=== PATIENT | male | born 1950 | race Caucasian/White ===

== ENCOUNTER 2018-05-13 17:19 | Emergency (ER) | payer MEDICARE ==
[~2018-05-13] VITALS: Ht 190.5 cm; Wt 102.1 kg
[~2018-05-13 17:19] MED LIST: DAILY MULTIPLE1 EACH PO; LEVOTHYROXINE75 MCG PO; LISINOPRIL2.5 MG PO; LOSARTAN POTASS25 MG PO; METFORMIN HCL500 M1 PO; VITAMIN D-32000 UNIT PO
== END 2018-05-13 18:33 | disposition home or self-care (01) ==
LOC: ED 17:19
DX: R31.9 Hematuria, unspecified (principal); E11.9 Type 2 diabetes mellitus without complications; Z91.038 Other insect allergy status; Z79.84 Long term (current) use of oral hypoglycemic drugs
CPT/HCPCS: 36415; 80048; 81001; 85025; 99283

== ENCOUNTER 2018-07-07 05:30 | Observation (INO) | payer MEDICARE ==
[~2018-07-07] VITALS: Ht 190.5 cm; Wt 93.0 kg
--- OUTSIDE RECORDS SUMMARY | ~2018-07-07 | XMS | Clinical Summary ---
Demographics + + + | Address | [address] | | | [place] [address] | + + + | Home Phone | | + + + | Preferred Language | Unknown | + + + | Marital Status | | + + + | Catholic Affiliation | Unknown | + + + | Race | Unknown | + + + | Ethnic Group | Unknown | + + + Author + + + | Author | [facility] | + + + | Organization | [facility] | + + + | Address | Unknown | + + + | Phone | Unavailable | + + + Support + + +---------+ + | Name | Relationship | Address | Phone | + + +---------+ + | Afshan Olmedo | ECON | Unknown | | + + +---------+ + | Detailed,Message | ECON | Unknown | | + + +---------+ + Care Team Providers + +------+ + | Care Entrepreneurship Program Director Name | Role | Phone | + +------+ + | Terrence Zaragoza DO | PP | | + +------+ + Allergies + + + + + + | Active Allergy | Reactions | Severity | Noted | Comments | | | | | Date | | + + + + + + | Bee Venom | Shortness of Breath | High | 05/25/19 | | | | | | 16 | | + + + + + + Current Medications + + +--------+---------+------+------+-------+ | Prescription | Sig. | Disp. | Refills | Star | End | Statu | | | | | | t | Date | s | | | | | | Date | | | + + +--------+---------+------+------+-------+ | Multiple | Take 1 tablet by | | | | | Activ | | Vitamins-Minerals | mouth daily. | | | | | e | | (ONE-A-DAY MENS 50+ | | | | | | | | ADVANTAGE PO) | | | | | | | + + +--------+---------+------+------+-------+ | Cholecalciferol | Take 2,000 Units by | | | | | Activ | | (VITAMIN D) 2000 | mouth daily. | | | | | e | | UNITS tablet | | | | | | | + + +--------+---------+------+------+-------+ | levothyroxine | Take 75 mcg by mouth | | | | | Activ | | (SYNTHROID) 75 MCG | every morning | | | | | e | | tablet | before breakfast. | | | | | | + + +--------+---------+------+------+-------+ | metFORMIN | Take 2,500 mg by | | | | | Activ | | (GLUMETZA) 500 MG | mouth daily with | | | | | e | | (MOD) 24 hr tablet | breakfast. Take 5 | | | | | | | | tablets by mouth | | | | | | | | once daily | | | | | | + + +--------+---------+------+------+-------+ | candesartan | Take 1 tablet by | 90 | 1 | 03/3 | | Activ | | (ATACAND) 8 MG | mouth daily. | tablet | | 04/27 | | e | | tabletIndications: | | | | 16 | | | | Essential | | | | | | | | hypertension | | | | | | | + + +--------+---------+------+------+-------+ | losartan (COZAAR) | TAKE 1 TABLET by | 90 | 1 | 04/1 | | Activ | | 25 MG tablet | mouth daily | tablet | | 11/25 | | e | | | | | | 17 | | | + + +--------+---------+------+------+-------+ Active Problems + + + | Problem | Noted Date | + + + | Coronary artery calcification seen on CT scan | 05/26/2015 | + + + + + | Last Assessment & Plan: No chest pain, SOB improved, no | | palpitationsCT coronary calcium scoring done because of dyspnea | | on exertion and high heart rate showed 50th percentile scoring- | | 112With moderate calcifications in LAD, CircEcho- normal LV | | funtionStress MPI no ischemiaDiscussed with patient regarding | | significance of calcium scoring in his age group- may not | | necessarily mean CAD- his symptoms of dyspnea- wheezing improved | | from fall to winter suggestive of possible allergic bronchitis, | | asthma- how ever patient have risk factors for CAD- HTN, DM, 64 | | yr old male- He is currently not on lisinopril- stopped on his | | own because of cough- his BP at home 130-150 as per patientJacques | | add Atacand 8mg daily- he will continue to monitor BP at | | homeContinue ASALDL- 54- not on statinDiscussed about CAD- | | importance of risk factor modification- diet, exercise, lifestyle | | changes, weight loss- clinical signs, importance of symptoms, | | CAD presentations, warning signs, management options including | | role of stress test, coronary angiogram, role of medications, | | stents, CABG in management of CADWill do PFTs- pulmonary | | evaluation for dyspnea- he reports wheezing post exercise and | | cough-? Exercise induced asthma? May benefit from methacholine | | challenge testF/u after test. | + + + + + | Dyspnea on exertion | 05/26/2015 | + + + + + | Last Assessment & Plan: His symptoms improved since initial | | presentation of dyspnea-Will rule out CADWisupa do PFTs- | | DLCOPulmonary evaluation for dyspnea- he reports wheezing post | | exercise and cough-? Exercise induced asthma? May benefit from | | methacholine challenge test | + + + + + | Palpitations | 05/26/2015 | + + + + + | Last Assessment & Plan: Reported increasing heart rate with | | significant exertion now resolved as breathing improvedEvent | | monitoring- no significant arrhythmias.No palpitations since last | | visit. | + + Social History + +-------+ +--------+------+ | Tobacco Use | Types | Packs/Day | Years | Date | | | | | Used | | + +-------+ +--------+------+ | Former Smoker | | | | | + +-------+ +--------+------+ + +---+---+---+ | Smokeless Tobacco: | | | | | Never Used | | | | + +---+---+---+ + + +---------+ + | Alcohol Use | Drinks/We | oz/Week | Comments | | | ek | | | + + +---------+ + | No | 0 | 0.0 | | | | Standard | | | | | drinks or | | | | | | | | | | equivalen | | | | | t | | | + + +---------+ + + + + | Sex Assigned at | Date Recorded | | | | + + + | Not on file | | + + + Last Filed Vital Signs + + + + | Vital Sign | Reading | Time Taken | + + + + | Blood Pressure | 142/80 | 07/07/2015 10:26 AM PDT | + + + + | Pulse | 77 | 07/07/2015 10:26 AM PDT | + + + + | Temperature | - | - | + + + + | Respiratory Rate | 18 | 07/07/2015 10:26 AM PDT | + + + + | Oxygen Saturation | 98% | 07/07/2015 10:26 AM PDT | + + + + | Inhaled Oxygen | - | - | | Concentration | | | + + + + | Weight | 102.4 kg (225 lb | 07/07/2015 10:26 AM PDT | | | 12.8 oz) | | + + + + | Height | 190.5 cm (6' 3") | 07/07/2015 10:26 AM PDT | + + + + | Body Mass Index | 28.22 | 07/07/2015 10:26 AM PDT | + + + + Plan of Treatment + + + + + | Health Maintenance | Due Date | Last Done | Comments | + + + + + | Vaccine: | | | | | Dtap/Tdap/Td (1 - | 8 | | | | Tdap) | | | | + + + + + | Colon Cancer | | | | | Screening | 9 | | | | (Colonoscopy) | | | | + + + + + | Vaccine: Zoster (1 | | | | | of 2) | 9 | | | + + + + + | Vaccine: | | | | | Pneumococcal 65+ | 4 | | | | Low/Medium Risk (1 | | | | | of 2 - PCV13) | | | | + + + + + | Statin Therapy | | | | | (optimal intensity) | 7 | | | + + + + + | Vaccine: Influenza | | | | | (#1) | 8 | | | + + + + + Results Not on filefrom Last 3 Months Insurance + +--------+ +------+-------+ + | Payer | Benefi | Subscriber | Type | Phone | Address | | | t Plan | ID | | | | | | / | | | | | | | Group | | | | | + +--------+ +------+-------+ + | PREMERA | PREMER | [id number] | | | [address] [address] | | | A BLUE | 8 | | | [place], [place] | | | CARD | | | | [phone] | + +--------+ +------+-------+ + | MEDICARE | MEDICA | [id number] | | | [address] | | | RE | | | | [place] [phone] | | | IP-OP | | | | | + +--------+ +------+-------+ + | REGENCE | REGENC | [id number] | | | | | | E-OREG | 8 | | | | | | ON | | | | | + +--------+ +------+-------+ + + +--------+ +--------+ + + | Guarantor Name | Accoun | Relation to | Date | Phone | Billing Address | | | t Type | Patient | of | | | | | | | | | | + +--------+ +--------+ + + | HÉCTOR OLMEDO JR. | Person | Self [birth year] | Home: | [address] | | | al/Fam | | 1951 | [phone] | [place] [address] | | | edi | | | [phone] | | + +--------+ +--------+ + +
--- OUTSIDE RECORDS SUMMARY | ~2018-07-07 | XMS | Encounter Summary ---
Demographics + + + | Address | [address] | | | [place] [address] | + + + | Home Phone | | + + + | Preferred Language | Unknown | + + + | Marital Status | | + + + | Spiritism Affiliation | 1073 | + + + | Race | Unknown | + + + | Ethnic Group | Unknown | + + + Author + + + | Author | [facility] | | | [facility] | + + + | Organization | [facility] | | | and [place] | + + + | Address | Unknown | + + + | Phone | Unavailable | + + + Support + + +---------+ + | Name | Relationship | Address | Phone | + + +---------+ + | CHERRY OLMEDO | ECON | Unknown | | + + +---------+ + Care Team Providers + +------+ + | Care Accuracy Expert Name | Role | Phone | + +------+ + | Maycol Nino | PCP | | | MD | | | + +------+ + Encounter Details +--------+ + + + + | Date | Type | Department | Care Team | Description | +--------+ + + + + | 06/25/ | [facility] | [facility] [place] | Michael Do MD | S/P cervical spinal | | 2019 | Encounter | MED CTR XRAY [address] | [address] [place] | fusion; Cervical | | | | [place] | [address] [place], [place] | spondylosis with | | | | [place] [address] | [address] | radiculopathy | | | | [phone] | | | +--------+ + + + + Social History + + + +--------+ + | Tobacco Use | Types | Packs/Day | Years | Date | | | | | Used | | + + + +--------+ + | Former Smoker | Cigarettes | | 22 | Quit: 04/08/1991 | + + + +--------+ + + +---+---+---+ | Smokeless Tobacco: | | | | | Never Used | | | | + +---+---+---+ + + +---------+ + | Alcohol Use | Drinks/We | oz/Week | Comments | | | ek | | | + + +---------+ + | No | | | | + + +---------+ + + + + | Sex Assigned at | Date Recorded | | | | + + + | Not on file | | + + + as of this encounter Medications at Time of Discharge + + +-------+---------+ + + | Medication | Sig. | Disp. | Refills | Start | End Date | | | | | | Date | | + + +-------+---------+ + + | cholecalciferol | Take 2,000 Units by | | | | | | (VITAMIN D-3) 2000 | mouth Daily. | | | | | | units TABS | | | | | | + + +-------+---------+ + + | EPINEPHrine | Inject 0.3 mg into | | | | | | auto-injector | the muscle as needed | | | | | | (EPIPEN 2-DANIEL) 0.3 | for Anaphylaxis. | | | | | | mg/0.3 mL injection | | | | | | + + +-------+---------+ + + | | Take 500 mg by mouth | | | | | | Glucosamine-Chondroi | 2 times daily. | | | | | | tin (GLUCOSAMINE | | | | | | | CHONDR COMPLEX PO) | | | | | | + + +-------+---------+ + + | levothyroxine | Take 75 mcg by mouth | | | | | | (SYNTHROID) 75 MCG | Daily. | | | | | | tablet | | | | | | + + +-------+---------+ + + | losartan (COZAAR) | Take 1 tablet by | | | 07/25/19 | | | 25 mg tablet | mouth Daily. | | | 17 | | + + +-------+---------+ + + | metFORMIN | Take 2,500 mg by | | | | | | (GLUMETZA) 500 MG 24 | mouth Daily. | | | | | | hr tablet | | | | | | + + +-------+---------+ + + | Multiple | Take 1 tablet by | | | | | | Vitamins-Minerals | mouth Daily. | | | | | | (CENTRUM SILVER | | | | | | | ULTRA MENS) TABS | | | | | | + + +-------+---------+ + + | Teaberry-3 Fatty | Take 1 tablet by | | | | | | Acids (FISH OIL PO) | mouth Daily. | | | | | + + +-------+---------+ + + as of this encounter Plan of Treatment Not on fileas of this encounter Procedures + +--------+ + + + | Procedure Name | Priori | Date/Time | Associated Diagnosis | Comments | | | ty | | | | + +--------+ + + + | XR CERVICAL SPINE 2 | Routin | 06/25/2018 | S/P cervical | Results for this | | OR 3 VIEWS | e | 1114 PDT | spinal fusion | procedure are in the | | | | | Cervical spondylosis | results section. | | | | | with radiculopathy | | + +--------+ + + + in this encounter Results XR Cervical Spine 2 or 3 Views (06/25/2018 1114) + + + | Narrative | Performed At | + + + | TWO VIEWS CERVICAL SPINE 06/25/2018 11:14 AM CLINICAL HISTORY: | [facility] | | Postop fusion COMPARISON: Radiographs January 2018 and more remote | | | imaging FINDINGS: Anterior plate and screw and interbody fusion | | | hardware again extends from C3 through C6 and appears stable and | | | intact. Vertebral height and alignment are maintained without | | | evident fracture or subluxation. Anterior disc space narrowing and | | | spondylosis persist at C6-7. Imaged skull base, soft tissue | | | structures and lung apices are unremarkable. IMPRESSION - 1. | | | STABLE CHANGES OF ACDF EXTENDING FROM C3 THROUGH C6. Dictated and | | | Signed by: Deni Grullon MD Electronically signed: 06/25/2018 12:17 | | | PM | | + + + + + | Procedure Note | + + | Javi, Rad Results In - 06/25/2018 1220 PDT TWO VIEWS CERVICAL SPINE 06/25/2018 11:14 AM | | | | CLINICAL HISTORY: Postop fusion | | | | COMPARISON: Radiographs January 2018 and more remote imaging | | | | FINDINGS: Anterior plate and screw and interbody fusion hardware again extends | | from C3 through C6 and appears stable and intact. Vertebral height and | | alignment are maintained without evident fracture or subluxation. Anterior disc | | space narrowing and spondylosis persist at C6-7. Imaged skull base, soft tissue | | structures and lung apices are unremarkable. | | | | IMPRESSION - | | 1. STABLE CHANGES OF ACDF EXTENDING FROM C3 THROUGH C6. | | | | Dictated and Signed by: Deni Grullon MD | | Electronically signed: 06/25/2018 12:17 PM | + + + +---------+ + + | Performing | Address | City/State/Zipcode | Phone Number | | Organization | | | | + +---------+ + + | [facility] | | | | + +---------+ + + in this encounter Visit Diagnoses + + | Diagnosis | + + | S/P cervical spinal fusion | + + | Arthrodesis status | + + | Cervical spondylosis with radiculopathy | + + | Cervical spondylosis with myelopathy | + +"
--- OUTSIDE RECORDS SUMMARY | ~2018-07-07 | XMS | Clinical Summary ---
Demographics + + + | Address | [address] | | | [place] [address] | + + + | Home Phone | | + + + | Preferred Language | Unknown | + + + | Marital Status | | + + + | Confucianist Affiliation | [id number] | + + + | Race | Unknown | + + + | Ethnic Group | Unknown | + + + Author + + + | Author | [facility] | | | and [place] | + + + | Organization | [facility] | | | and [place] | [...] Team Providers + +------+ + | Care Plant And Equipment Worker Name | Role | Phone | + +------+ + | Maycol Nino | PP | | | MD | | | + +------+ + Allergies + + + + + + | Active Allergy | Reactions | Severity | Noted | Comments | | | | | Date | | + + + + + + | Bee Venom | Shortness Of Breath, | High | 05/25/19 | Asthma | | | Other (See | | 16 | | | | Comments) | | | | + + + + + + Current Medications + + +-------+---------+------+------+-------+ | Prescription | Sig. | Disp. | Refills | Star | End | Statu | | | | | | t | Date | s | | | | | | Date | | | + + +-------+---------+------+------+-------+ | losartan (COZAAR) | Take 1 tablet by | | | 04/1 | | Activ | | 25 mg tablet | mouth Daily. | | | 8/20 | | e | | | | | | 17 | | | + + +-------+---------+------+------+-------+ | metFORMIN | Take 2,500 mg by | | | | | Activ | | (GLUMETZA) 500 MG 24 | mouth Daily. | | | | | e | | hr tablet | | | | | | | + + +-------+---------+------+------+-------+ | levothyroxine | Take 75 mcg by mouth | | | | | Activ | | (SYNTHROID) 75 MCG | Daily. | | | | | e | | tablet | | | | | | | + + +-------+---------+------+------+-------+ | cholecalciferol | Take 2,000 Units by | | | | | Activ | | (VITAMIN D-3) 2000 | mouth Daily. | | | | | e | | units TABS | | | | | | | + + +-------+---------+------+------+-------+ | Multiple | Take 1 tablet by | | | | | Activ | | Vitamins-Minerals | mouth Daily. | | | | | e | | (CENTRUM SILVER | | | | | | | | ULTRA MENS) TABS | | | | | | | + + +-------+---------+------+------+-------+ | EPINEPHrine | Inject 0.3 mg into | | | | | Activ | | auto-injector | the muscle as needed | | | | | e | | (EPIPEN 2-DANIEL) 0.3 | for Anaphylaxis. | | | | | | | mg/0.3 mL injection | | | | | | | + + +-------+---------+------+------+-------+ | [place]-3 Fatty | Take 1 tablet by | | | | | Activ | | Acids (FISH OIL PO) | mouth Daily. | | | | | e | + + +-------+---------+------+------+-------+ | | Take 500 mg by mouth | | | | | Activ | | Glucosamine-Chondroi | 2 times daily. | | | | | e | | tin (GLUCOSAMINE | | | | | | | | CHONDR COMPLEX PO) | | | | | | | + + +-------+---------+------+------+-------+ Active Problems + + + | Problem | Noted Date | + + + | Diabetes mellitus (HCC) | 11/26/2017 | + + + | Esophageal dysphagia | 09/16/2017 | + + + | Coronary artery calcification seen on CT scan | 05/26/2015 | + + + + + | Overview: Last Assessment & Plan: No chest pain, SOB | | improved, no palpitationsCT coronary calcium scoring done because | | of dyspnea on exertion and high heart rate showed 50th | | percentile scoring- 112With moderate calcifications in LAD, | | CircEcho- normal LV funtionStress MPI no ischemiaDiscussed with | | patient regarding significance of calcium scoring in his age | | group- may not necessarily mean CAD- his symptoms of dyspnea- | | wheezing improved from fall to winter suggestive of possible | | allergic bronchitis, asthma- how ever patient have risk factors | | for CAD- HTN, DM, 64 yr old male- He is currently not on | | lisinopril- stopped on his own because of cough- his BP at home | | 130-150 as per Prashanth add Atacand 8mg daily- he will | | continue to monitor BP at homeContinue ASALDL- 54- not on | | statinDiscussed about CAD- importance of risk factor | | modification- diet, exercise, lifestyle changes, weight loss- | | clinical signs, importance of symptoms, CAD presentations, | | warning signs, management options including role of stress test, | | coronary angiogram, role of medications, stents, CABG in | | management of CADWill do PFTs- pulmonary evaluation for dyspnea- | | he reports wheezing post exercise and cough-? Exercise induced | | asthma? May benefit from methacholine challenge testF/u after | | test. | + + + + + | Dyspnea on exertion | 05/26/2015 | + + + + + | Overview: Last Assessment & Plan: His symptoms improved since | | initial presentation of dyspnea-Will rule out CADWill do PFTs- | | DLCOPulmonary evaluation for dyspnea- he reports wheezing post | | exercise and cough-? Exercise induced asthma? May benefit from | | methacholine challenge test | + + + + + | Palpitations | 05/26/2015 | + + + + + | Overview: Last Assessment & Plan: Reported increasing heart | | rate with significant exertion now resolved as breathing | | improvedEvent monitoring- no significant arrhythmias.No | | palpitations since last visit. | + + + + + | History of malignant lymphoma | 04/08/1994 | + + + Encounters +--------+ + + + + | Date | Type | Specialty | Care Team | Description | +--------+ + + + + | 06/25/ | Hospital | | Michael Do MD | S/P cervical spinal | | 2019 | Encounter | | | fusion; Cervical | | | | | | spondylosis with | | | | | | radiculopathy | +--------+ + + + + from Last 3 Months Immunizations + + + + | Name | Dates Previously Given | Next Due | + + + + | INFLUENZA, | 12/06/2017 | | | UNSPECIFIED | | | | FORMULATION | | | + + + + Family History + + +------+ + | Medical History | Relation | Name | Comments | + + +------+ + | Lung cancer | Father | | Melanoma | + + +------+ + | Diabetes | Mother | | | + + +------+ + | Heart disease | Mother | | ASHD | + + +------+ + + +------+ + + | Relation | Name | Status | Comments | + +------+ + + | Father | | | | | | | (Age | | | | | 67) | | + +------+ + + | Mother | | | | | | | (Age | | | | | 79) | | + +------+ + + Social History + + + [...] + + + | Blood Pressure | 139/76 | 01/22/20181346 PDT | + + + + | Pulse | 69 | 01/22/20181346 PDT | + + + + | Temperature | 36.6 C (97.9 F) | 11/05/20171099 PDT | + + + + | Respiratory Rate | 16 | 11/05/20171099 PDT | + + + + | Oxygen Saturation | 97% | 11/05/20171099 PDT | + + + + | Inhaled Oxygen | - | - | | Concentration | | | + + + + | Weight | 98.4 kg (216 lb 14.9 | 01/22/20181346 PDT | | | oz) | | + + + + | Height | 190.5 cm (6' 3") | 01/22/20181346 PDT | + + + + | Body Mass Index | 27.11 | 01/22/20181346 PDT | + + + + Plan of Treatment + + + + + | Health Maintenance | Due Date | Last Done | Comments | + + + + + | Hepatitis C | | | | | Screening | 9 | | | + + + + + | Diabetic Eye Exam | | | | | | 7 | | | + + + + + | Diabetic Foot Exam | | | | | | 7 | | | + + + + + | Vaccine: Zoster (1 | | | | | of 2) | 9 | | | + + + + + | AAA Screening | | | | | | 4 | | | + + + + + | Adult Annual | | | | | Wellness Visit | 5 | | | + + + + + | Statin Therapy | | | | | (optimal intensity) | 5 | | | + + + + + | Vaccine: | | 03/21/2015 | | | Pneumococcal 65+ | 6 | | | | Low/Medium Risk (2 | | | | | of 2 - PCV13) | | | | + + + + + | Hemoglobin A1c Q6 | | 10/25/2017 | | | Months | 9 | | | + + + + + | Colorectal Cancer | | 03/21/2015 | | | Screening | 5 | | | | (Colonoscopy) | | | | + + + + + | Vaccine: | | 09/19/2016, 08/24/2011, | | | Dtap/Tdap/Td (4 - | 7 | 01/13/2008 | | | Td) | | | | + + + + + | Vaccine: Influenza | Completed | 12/06/2017, 11/22/2017, | | | | | 11/30/2016, Additional history | | | | | exists | | + + + + + Implants + +--------+--------+ +--------+--------+--------+ | Implanted | Type | Area | Manufacture | Device | Expira | Model | | | | | r | | tion | / | | | | | | Identi | Date | Serial | | | | | | fier | | / Lot | + +--------+--------+ +--------+--------+--------+ | Cage Isatu Ptc [id number] - | Generi | N/A: | [employer] - | | 08/27/ | [id number] | | [id number]: Qty: 1 | c | Neck | MEDT | | 2025 | 4 / | | on 11/04/2017 by Michael Do | | | | | | /[id number] | | MD Eitan | | | | | | | + +--------+--------+ +--------+--------+--------+ | Cage Isatu Ptc [id number] - | Generi | N/A: | [employer] - | | 10/09/ | [id number] | | [id number]: Qty: 2 | c | Neck | MEDT | | 2025 | 4 / | | on 11/04/2017 by Michael Do | | | | | | /[id number] | | MD Eitan | | | | | | | + +--------+--------+ +--------+--------+--------+ | Imp Spn Plt Ti Zevo 59mm 3lvl | Generi | N/A: | [employer] - | | | [id number] | | - [id number]: Qty: | c | Neck | MEDT | | | 9 / / | | 1 on 11/04/2017 by Michael Do | | | | | | | | MD Eitan | | | | | | | + +--------+--------+ +--------+--------+--------+ | Emanueldivine Bill Pls 1cc Aseptic | Graft | N/A: | [employer] - | | 05/31/ | [id number] | | - [id number]: Qty: | | Spine | MEDT | | 2020 | | | 1 on 11/04/2017 by Ernestina, | | Lumbar | | | | /[id number] | | Michael Liard MD | | | | | | 1-086 | | | | | | | | / | + +--------+--------+ +--------+--------+--------+ | Screw D-Thrd Slf-Drl 3.5x17mm | Screw | N/A: | [employer] - | | | [id number] | | - [id number]: Qty: | | Neck | MEDT | | | 7 / / | | 6 on 11/04/2017 by Michael Do | | | | | | | Merritt Laird MD | | | | | | | + +--------+--------+ +--------+--------+--------+ | Screw D-Thrd Slf-Drl 4.0x17mm | Screw | N/A: | [employer] - | | | [id number] | | - [id number]: Qty: | | Neck | MEDT | | | 7 / / | | 2 on 11/04/2017 by Michael Do | | | | | | | | MD Eitan | | | | | | | + +--------+--------+ +--------+--------+--------+ Procedures + +--------+ + + + | [...] | | + +--------+ + + + from Last 3 Months Results XR Cervical Spine 2 or 3 [...] | | | + +---------+ + + from Last 3 Months Insurance + +--------+ +--------+ +---------+ | Payer | Benefi | Subscriber | Type | Phone | Address | | | t Plan | ID | | | | | | / | | | | | | | Group | | | | | + +--------+ +--------+ +---------+ | BCBS | BCBS | [id number] | PPO | | | | | OOS | 8 | | | | | | PPO | | | | | + +--------+ +--------+ +---------+ | MEDICARE | MEDICA | [id number] | Medica | [phone] | | | | RE | | re | [phone] | | | | PART A | | | | | | | AND B | | | | | + +--------+ +--------+ +---------+ | AARP | AARP | [id number] | Indemn | [phone] | | | MDCR | | ity | [phone] | | | | SUPPL | | | | | + +--------+ +--------+ +---------+ + +--------+ +--------+ + + | Guarantor Name | Accoun | Relation to | Date | Phone | Billing Address | | | t Type | Patient | of | | | | | | | | | | + +--------+ +--------+ + + | HÉCTOR OLMEDO JR | Person | Self | [birth year] | Home: | [address] | | | al/Fam | | 1951 | [phone] | [place] [address] | | | edi | | [phone] | | + +--------+ +--------+ + +
[~2018-07-07 05:30] MED LIST changes: +FINASTERIDE5 MG PO; +FISH OIL 1,0001 EAC2 NG; +GLUCOSAMINE &1 EAC1 PO; +ONE-A-DAY ESSE1 EACH PO; +VITAMIN D32000 UNI1 PO
--- NOTE | 2018-07-07 09:10 | NUR ---
[facility] PAC[facility] SLEEPY WITH NO C/O'S. CBI RUNNING WITH URINE LITE PINK IN COLOR. 0852 BLOOD SUGAR 116. 0855 OXYGEN REMOVED. SATS 95% ON RA. NO C/O'S.
--- NOTE | 2018-07-07 09:40 | NUR ---
PT TO ROOM 123 VIA STRETCHER ACCOMPANIED BY RAPHAEL HEARD AT 0930. SCOOTED SELF FROM STRETCHER TO BED. DENIED PAIN. AWAKE, ALERT. RECIEVED BEDSIDE REPORT FROM RAPHAEL HEARD. CBI GOING, SLOW RATE, URINE IN CATHETER TUBING CLEAR.
--- NOTE | 2018-07-07 10:20 | NUR ---
PT IN BED, AWAKE, ALERT. NO C/O FEELING OF BLADDER SPASMS, DENIES PAIN. CBI INFUSING SLOWLY, URINE IN TUBING CLEAR.
[2018-07-07] MEDS ORDERED: EPIN0.3P IM (11:04)
--- NOTE | 2018-07-07 11:05 | NUR ---
PT GIVEN SCHEDULED HOME MEDICATIONS. PT DENIES PAIN OR FEELING OF BLADDER SPASMS. CATHETER TUBING HAS URINE FLOWING FREELY INTO IT, URINE CLEAR, LIGHT YELLOW. CBI GOING VERY SLOWLY.
--- NOTE | 2018-07-07 12:08 | NUR ---
CBI OFF, URINE IN CATHETER TUBING CLEAR LIGHT YELLOW. NO CLOTS OR BLOOD NOTED. PT DENIED PAIN. PERSONAL SUPPLIES AND CALL LIGHT IN REACH. PT HAS REGULAR DIET LUNCH AT BEDSIDE. TOLERATED CLEAR LIQUID TRAY WITHOUT ISSUE.
--- NOTE | 2018-07-07 13:35 | NUR ---
PT SITTING UP IN BED, TALKING AND LAUGHING WITH FAMILY. URINE IN CATHETER TUBING HAS LIGHT PINK COLOR. NO CLOTS NOTED, URINE FLOWING INTO TUBING WITHOUT ISSUE. PT DENIED PAIN, DENIED FEELING OF BLADDER SPASMS.
--- NOTE | 2018-07-07 14:17 | NUR ---
PATIENT SITTING UP IN BED, FAMILY IN ROOM. CALL LIGHT IN REACH. NO FURTHER NEEDS AT THIS TIME.
--- NOTE | 2018-07-07 14:39 | NUR ---
PT SITTING UP IN BED, VISITING WITH FAMILY. URINE IN CATHETER TUBING IS LIGHT PINK, NO CLOTS NOTED. 1875 ML LIGHT PINK URINE OUT OF DRAINAGE BAG, WITH APROXIMATELY 100 ML IRRIGANT HAVING INFUSED SINCE LAST EMPTITIED PRIOR TO PT COMING TO FLOOR FROM PACU. CBI REMAINS CLAMPED OFF. PT DENIES PAIN.
[2018-07-07] MEDS ORDERED: MIRALAX17 GM PO (15:57)
--- NOTE | 2018-07-07 16:03 | NUR ---
Medications reconciled using pharmacy records, patient med list and patient interview
--- NOTE | 2018-07-07 17:11 | NUR ---
PT SITTING UP IN BED. NOTED THAT THE URINE IN CATHETER TUBING WAS SERRATO PINK, NO CLOTS NOTED. TURNED CBI ON, CLEARED TUBING OF URINE, AND LEFT CBI ON AT A SLOW DRIP TO KEEP URINE CLEAR. PT DENIED PAIN OR CRAMPING.
--- NOTE | 2018-07-07 17:59 | NUR ---
PT SITTING UP IN BED, ATE 100% OF DINNER, REGULAR DIET. TOLERATED WELL. NO C/O PAIN OR CRAMPING. PT HAS HAD CBI INFUSING SLOWLY, HAD A TOTAL OF 200 ML IRRIGANT IN AND 550 ML MEDIUM PINK URINE OUT, FOR A TOTAL OF 350 ML URINE OUT. URINE IN CATHETER TUBING IS CLEAR LIGHT YELLOW. NO CLOTS NOTED, URINE FLOWING WITHOUT ISSUE.
--- NOTE | 2018-07-07 18:04 | NUR ---
PATIENT IN BED WATCHING TV. FAMILY IN ROOM. FRESH WATER GIVEN. CALL LIGHT IN REACH. NO FURTHER NEEDS AT THIS TIME.
--- NOTE | 2018-07-07 18:05 | NUR ---
PT TO FLOOR FROM PACU THIS AM, HAD TURP. HAS A 3 WAY URINE CATHETER. HAS CBI HOOKED TO THIS. HAD IRRIGANT GOING VERY SLOWLY THIS AM AND WAS ABLE TO WEAN CBI TO OFF WITH CLEAR URINE IN TUBING, BUT PT REPOSITIONED SELF IN BED AND URINE IN TUBING BECAME SERRATO PINK THIS AFTERNOON. CBI TURNED BACK ON TO SLOW RATE OF FLOW, AND URINE IN TUBING IS CLEAR LIGHT YELLOW AGAIN. PT HAS DENIED PAIN. HAS NS INFUSING AT 100 ML/HR.
--- NOTE | 2018-07-07 19:20 | NUR ---
SHIFT REPORT RECEIVED FROM DAYSMTFT RAPHAEL DOVER AT BEDSIDE. CBI INFUSING, 350 MLS VOLUME IN, 500 MLS VOLUME OUT, AND 150 MLS LIGHT TO MEDIUM PINK URINE RECORDED IN I&O'S. CPOX IN PLACE, PT ON RA, RR WNL. PT DENIES FURTHER NEEDS, CALL LIGHT IN REACH.
--- NOTE | 2018-07-07 21:40 | NUR ---
ASSESSMENT COMPLETE. PT A/OX4, DENIES PAIN, BLADDER SPASMS, AND SOB. IV TUBING CLEAR IN COLOR, CBI CLAMPED AT THIS TIME. IN ATTEMPT TO SECURE IV CATHETER, PT MOVED ARM AND CATHETER WAS ACCIDENTLY PULLED OUT BY PT. TIP INTACT. SITE REINFORCED WITH 2X2 AND COBAN. MULTIPLE ATTEMPTS TO PLACE NEW IV UNSUCCESSFUL BY THERAPIST RRT, CCU RN, AND CEMENT STORAGE WORKER. PT MAINTAINING ORAL FLUIDS, EDUCATED ON IMPORTANCE TO MAINTAIN PO INTAKE, PT VERBALIZED UNDERSTANDING. PT EXPECTED TO BE DISCHARGED IN THE AM. WILL NOTIFY DR MAYO BEFORE SHIFT CHANGE. NO FURTHER NEEDS, CALL LIGHT IN REACH.
--- NOTE | 2018-07-07 22:02 | NUR ---
V/S DONE AND CHARTED. DRINKING WATER WITHOUT ICE REFILLED.
--- NOTE | 2018-07-08 02:00 | NUR ---
CBI REMAINS CLAMPED AT THIS TIME. CATHETER TUBING REMAINS LIGHT YELLOW WITH HUES OF LIGHT PINK. PT DENIES PAIN AND BLADDER SPASMS. CALL LIGHT IN REACH.
--- NOTE | 2018-07-08 02:20 | NUR ---
ASSESSMENT COMPLETE. NO NEW CONCERNS. PT IS A/OX4, DENIES PAIN AND SPASMS IN BLADDER. CBI REMAINS CLAMPED, CATHETER TUBING IS LIGHT YELLOW/CLEAR WITH SPOTS OF LIGHT PINK HUES. WILL CONTINUE TO MONITOR. PT DENIES NEEDS, CALL LIGHT IN REACH.
--- NOTE | 2018-07-08 05:18 | NUR ---
PT HAD A GOOD NIGHT. SLEPT ON AND OFF THIS SHIFT. VSS, PT ON RA, AND DENIED PAIN ALL SHIFT. CBI CLAMPED AT 2100 AND HAS REMAINED CLAMPED, CATHETER OUTPUT STRAW COLORED, QS. PT ON BEDREST, USES CALL LIGHT APPROPERIATELY. REGUALR DIET, BT ACTIVE, NO NAUSEA. IV ACCESS LOST THIS SHIFT, MD AWARE.
--- NOTE | 2018-07-08 06:51 | NUR ---
DR ALMEIDA AWARE OF PT'S LACK OF IV ACCESS. NO NEW ORDERS.
--- NOTE | 2018-07-08 07:15 | NUR ---
BEDSIDE HANDOFF REPORT RECEIVED FROM LEGAL PARAPROFESSIONAL RN. PT RESTING IN BED. PT ON ROOM AIR, O2 SATS 98%. EPSTEIN CATH IN PLACE, DRAINING LIGHT YELLOW URINE, CONTINUOUS BLADDER IRRIGATION CLAMPED. PT WIHOUT IV ACCESS. PT DENIES OTHER NEEDS AT THIS TIME.
--- NOTE | 2018-07-08 10:00 | NUR ---
PT RESTING IN BED. PT ON ROOM AIR,LUNG SOUNDS CLEAR. PT DENIES PAIN. PT WITHOUT IV ACCESS. IM ROCEPHIN GIVEN TO RIGHT DELTOID. PT WITH EPSTEIN CATH, CBI CLAMPED, URINE LIGHT PINK IN COLOR, SMALL AMOUNT OF SEDIMENT IN TUBING. PT SBA TO BATHROOM, TEETH BRUSHED, PT ASSISTED TO CHAIR. PT EDUCATED ON CATH CARE, EXPECTED COLOR OF URINE, AND WHEN TO CALL MD. PT DENIES NAUSEA, BOWEL TONES ACTIVE, TOLERATING REGULAR DIET. PT DENIES OTHER NEEDS AT THIS TIME.
[2018-07-08] MEDS ORDERED: PERCOCET 5-3251 EACH PO (10:43)
[2018-07-08] MEDS ORDERED: BACTRIM DS TAB1 EACH PO (10:43)
--- NOTE | 2018-07-08 11:36 | NUR ---
DISCHARGE INSTRUCTIONS COMPLETED WITH PT AND . EXTENSIVE TEACHING ON CATH CARE. PT PROVIDED WITH ALCOHOL SWABS, SECUREMENT DEVICE. ALL QUESTIONS ANSWERED. VSS.
--- NOTE | 2018-07-11 12:35 | OR ---
[facility] [address], [place] [address] Signed DATE OF OPERATION: 07/07/2018 SURGEON: Maral Mayo MD PREOPERATIVE DIAGNOSES: 1. History of gross hematuria. 2. Benign prostatic hyperplasia with lower urinary tract symptoms. POSTOPERATIVE DIAGNOSES: 1. History of gross hematuria. 2. Benign prostatic hyperplasia with lower urinary tract symptoms. NAMES OF PROCEDURES: 1. Urethral dilation using [place] sounds. 2. Transurethral resection of the prostate. ANESTHESIA: General. ESTIMATED BLOOD LOSS: 20 mL. COMPLICATIONS: None. SPECIMENS: Prostate chips sent to pathology for evaluation. DRAINS: A 22-Croatian three way Mcneal catheter, connected to continuous bladder irrigation. INDICATIONS FOR PROCEDURE: Mr. Olmedo is a very pleasant 67-year-old gentleman who initially presented to me a few months ago for evaluation of gross hematuria. It turns out that he had recently injured himself with heavy lifting and was also taking Estrella-Winona daily at that time, which does include aspirin. 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 After discussion of the risks and benefits of the procedure, the patient elected to undergo repeat TURP for resection of his active obstructing trilobar BPH. Electronically Signed By: MARAL MAYO MD 07/11/18 1235 [facility] RE[facility] DATE OF : 46 REPORT #: [id number] PHYSICIAN: MARAL MAYO MD PCP: PAPA KHAN MD REPORT IS CONFIDENTIAL AND NOT TO BE RELEASED WITHOUT AUTHORIZATION [facility] [address] [place], [place] [address] Signed OPERATIVE FINDINGS: 1. On cystoscopy, there was no evidence of any suspicious masses, lesions, or stones. Bilateral ureteral orifices are in their normal anatomic location and are not near the bladder neck. 2. The patient's urethra was dilated using [place] sounds from 18-Croatian to 30-Croatian without difficulty. 3. Using a bipolar 24-Croatian loop, the patient's median, left lateral, and right lateral lobes of the prostate were resected down to the level of verumontanum without difficulty. 4. At the end of the procedure, a 22-Croatian three-way Mcneal catheter was inserted into the patient's bladder, and connected to continuous bladder irrigation. 5. Digital rectal examination was performed, which revealed a 35 g prostate that was smooth and symmetric with no focal nodularity palpated. DESCRIPTION OF PROCEDURE: After informed consent was obtained, the patient was taken back to the operating room. He was transferred from the [facility] to the operating room table, where general anesthesia was induced. He was placed in the dorsal lithotomy position and his genitalia were prepped and draped in a standard sterile fashion. The patient's urethra was then dilated using [place] sounds from 18-Croatian to 30-Croatian without difficulty. Using a 30-degree lens on a 26-Croatian introducer the resectoscope was inserted through the patient's urethra into his bladder under direct visualization. The visual obturator was then replaced with resectoscope with the 24-Croatian loop. Before resecting, I visualized the bilateral ureteral orifices and noted that they were not in the way or near the bladder neck. I began my resection with median lobe followed by the left lateral lobe and then right lateral lobe of the prostate. The resection was performed down to the level of the verumontanum without difficulty. Once I adequately resected enough tissue with the loop I then removed the loop and switched to a bipolar button device where then I continued cleaning up the area. I then cauterized the resection bed in order to gain adequate hemostasis. Overall, the procedure was went well and no unexpected circumstances were encountered. Once I was satisfied that hemostasis had been achieved using the bipolar button, I passed a 22-Croatian three-way Mcneal catheter over a wire and into the patient's bladder. The balloon was filled with 30 mL of water. The catheter was then connected to continuous bladder irrigation. The procedure was then terminated. The patient tolerated the procedure well without any complication. He will now be transferred to the postanesthesia care unit in stable condition. DISPOSITION: Once the patient recovers in the PACU, he will be transferred to the medical-surgical floor to continue his continuous bladder irrigation. The nursing staff will wean his CBI to off, keeping the urine clear to light pink in color. Regular diet will be Electronically Signed By: MARAL MAYO MD 07/11/18 1235 PATIENT NAME: [facility] OPERATIVE REPORT DATE OF : 46 REPORT #: [id number] PHYSICIAN: MARAL MAYO MD PCP: PAPA KHAN MD REPORT IS CONFIDENTIAL AND NOT TO BE RELEASED WITHOUT AUTHORIZATION [address] [address] Signed restarted and pain control will be administered as needed. I anticipate for the patient to stay overnight and be discharged to home tomorrow morning after he receives another gram of Rocephin. He will be scheduled to return to clinic this at 11:00 a.m. to undergo a voiding trial. MD SAWYER Zambrano/RODRI /[id number] Copies: ~ Electronically Signed By: MARAL MAYO MD 07/11/18 1235 PATIENT NAME: [facility] REPORT DATE OF : 46 REPORT #: [id number] PHYSICIAN: MARAL MAYO MD PCP: PAPA KHAN MD REPORT IS CONFIDENTIAL AND NOT TO BE RELEASED WITHOUT AUTHORIZATION
== END 2018-07-08 11:40 | disposition home or self-care (01) ==
LOC: DS 05:30 → OPS 05:30 → DS 06:45 → OPS 08:15 → MS 09:30 → OPS 09:30 → MS 07-08 11:40
PROVIDERS: ADMIT Urology
PROC: 0VB08ZZ Excision of Prostate, Via Natural or Artificial Opening Endoscopic (ICD-10-PCS; principal; 2018-07-07 06:45)
DX: N40.1 Benign prostatic hyperplasia with lower urinary tract symptoms (principal); R39.12 Poor urinary stream; N02.8 Recurrent and persistent hematuria with other morphologic changes; N13.9 Obstructive and reflux uropathy, unspecified; E11.9 Type 2 diabetes mellitus without complications; E03.9 Hypothyroidism, unspecified; I10 Essential (primary) hypertension; Z85.72 Personal history of non-Hodgkin lymphomas; Z87.891 Personal history of nicotine dependence; Z88.1 Allergy status to other antibiotic agents; Z79.84 Long term (current) use of oral hypoglycemic drugs; Z79.899 Other long term (current) drug therapy
CPT/HCPCS: 00914; 88305; C1769; G0378; J0696; J1100; J1885; J2250; J2405; J2704; J2765; J3010; J7030; J7120

== ENCOUNTER 2021-12-23 07:23 | Emergency (ER) | payer MEDICARE, OTHER ==
[~2021-12-23] VITALS: Ht 190.5 cm; Wt 93.0 kg
[~2021-12-23 07:23] MED LIST changes: +BACTRIM DS TAB1 EACH PO; +EPIN0.3P IM; +MIRALAX17 GM PO; +PERCOCET 5-3251 EACH PO; +TAMSULOSIN HCL0.4 MG PO
[2021-12-23] MEDS ORDERED: LATANOPROST2.5 ML OPTH (07:36)
[2021-12-23] MEDS ORDERED: METOPROLOL SUCC25 MG PO (07:36)
[2021-12-23] MEDS ORDERED: ALPRAZOLAM0.5 MG PO (07:37)
--- NOTE | 2021-12-23 17:36 | EKG ---
[facility] [address] [facility] [place] [address] Signed Normal sinus rhythm Normal ECG No previous ECGs available Confirmed by JACI HERNANDEZ MD ([id number]) on 12/23/2021 5:36:42 PM Electronically Signed By: JACI HERNANDEZ MD 12/23/21 1736 PATIENT NAME: JOEYVINCENZO EDISON Electrocardiogram DATE OF : 46 PHYSICIAN: JACI HERNANDEZ MD REPORT #: [id number] REPORT IS CONFIDENTIAL AND NOT TO BE RELEASED WITHOUT AUTHORIZATION
== END 2021-12-23 09:52 | disposition home or self-care (01) ==
LOC: ED 07:23
DX: J98.01 Acute bronchospasm (principal); E11.9 Type 2 diabetes mellitus without complications; Z87.891 Personal history of nicotine dependence; Z91.030 Bee allergy status; Z88.1 Allergy status to other antibiotic agents; Z79.899 Other long term (current) drug therapy
CPT/HCPCS: 36415; 71045; 80053; 83880; 84484; 85025; 93005; 93010; 94640; 94664; 99285-25

== ENCOUNTER 2022-01-03 06:42 | Emergency (ER) | payer MEDICARE, OTHER ==
[~2022-01-03] VITALS: Ht 190.5 cm; Wt 93.0 kg
[~2022-01-03 06:42] MED LIST changes: +ALPRAZOLAM0.5 MG PO; +LATANOPROST2.5 ML OPTH; +METOPROLOL SUCC25 MG PO
--- OUTSIDE RECORDS SUMMARY | 2022-01-03 06:44 | XMS ---
PreManage Notification: VINCENZO COOK Security Goodwill Ambassador Events No recent Security Events currently on file CRITERIA MET - [facility] - 2 Visits in 30 Days CARE PROVIDERS ODIN SANCHEZ Physician Top Cutter Current PHONE: Unknown Sue has no Care Guidelines for this patient. Madhavi VISIT COUNT (12 MO.) 3 [facility] TOTAL 3 NOTE: Visits indicate total known visits. 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
== END 2022-01-03 08:36 | disposition home or self-care (01) ==
LOC: ED 06:42
DX: R00.2 Palpitations (principal); E11.9 Type 2 diabetes mellitus without complications; I48.92 Unspecified atrial flutter; Z87.891 Personal history of nicotine dependence; Z91.030 Bee allergy status; Z88.1 Allergy status to other antibiotic agents; Z79.899 Other long term (current) drug therapy
CPT/HCPCS: 36415; 84484; 99284

== ENCOUNTER 2022-01-15 09:14 | Emergency (ER) | payer MEDICARE, OTHER ==
[~2022-01-15] VITALS: Ht 190.5 cm; Wt 93.0 kg
--- OUTSIDE RECORDS SUMMARY | 2022-01-15 09:16 | XMS ---
PreManage Notification: VINCENZO COOK Security Hot Plate [employer] Press Feeder Events No recent Security Events currently on file [facility] CARE PROVIDERS ODIN SANCHEZ Physician Current PHONE: Unknown Sue has no Care Guidelines for this patient. EAidan VISIT COUNT (12 MO.) 4 [facility] TOTAL 4 NOTE: Visits indicate total known visits. ED/UCC VISIT TRACKING (12 MO.) 01/15/2022 09:15 [facility] [place] TYPE: Emergency COMPLAINT: - POSS PANIC ATTACK 01/03/2022 06:43 [facility] [place] TYPE: Emergency COMPLAINT: - PANIC ATTACK DIAGNOSES: - Unspecified atrial flutter - Palpitations - Bee allergy status - Other rn long term care (current) drug therapy - Allergy status to other antibiotic agents - Anxiety disorder, unspecified - Personal history of nicotine dependence - Type 2 diabetes mellitus without complications 12/23/2021 07:23 [facility] [place] TYPE: Emergency COMPLAINT: - CHEST PRESSURE,SHOB DIAGNOSES: - Acute bronchospasm - Personal history of nicotine dependence - Bee allergy status - Allergy status to other antibiotic agents - Type 2 diabetes mellitus without complications - Other chest pain - Other rn long term care (current) drug therapy 11/15/2021 07:59 [facility] [place] TYPE: Emergency COMPLAINT: - RAPID HEART BEAT DIAGNOSES: - Palpitations - Bee allergy status - Allergy status to other antibiotic agents - Type 2 diabetes mellitus without complications - Personal history of nicotine dependence - Other jail (current) drug therapy INPATIENT VISIT TRACKING (12 MO.) No inpatient visits to display in this time frame [email or web address]
--- NOTE | 2022-01-15 16:11 | EKG ---
[facility] [address] [facility] [place] [address] Signed Atrial-paced rhythm Abnormal ECG When compared with ECG of 23-DEC-2021 07:26, Electronic atrial pacemaker has replaced Sinus rhythm Confirmed by DAISY CARLIN MD ([id number]) on 01/15/2022 4:10:55 PM Electronically Signed By: DAISY CARLIN MD 01/15/22 1611 PATIENT NAME: VINCENZO COOK JR Electrocardiogram DATE OF : 46 PHYSICIAN: DAISY CARLIN MD REPORT #: [id number] REPORT IS CONFIDENTIAL AND NOT TO BE RELEASED WITHOUT AUTHORIZATION
== END 2022-01-15 12:51 | disposition home or self-care (01) ==
LOC: ED 09:14
DX: R07.89 Other chest pain (principal); E11.9 Type 2 diabetes mellitus without complications; Z87.891 Personal history of nicotine dependence; Z88.1 Allergy status to other antibiotic agents; Z91.030 Bee allergy status; Z79.899 Other long term (current) drug therapy
CPT/HCPCS: 36415; 71045; 80053; 83735; 84484; 85025; 93005; 93010; 99285-25

== ENCOUNTER 2022-01-17 03:02 | Emergency (ER) | payer MEDICARE, OTHER ==
[~2022-01-17] VITALS: Ht 185.4 cm; Wt 96.5 kg
--- OUTSIDE RECORDS SUMMARY | 2022-01-17 03:04 | XMS ---
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 CARE PROVIDERS ODIN SANCHEZ Physician Current PHONE: Unknown Sue has no Care Guidelines for this patient. E.Ingrid VISIT COUNT (12 MO.) 5 [facility] TOTAL 5 NOTE: Visits indicate total known visits. 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 - Allergy status to other antibiotic agents - Anxiety disorder, unspecified - Personal history of nicotine dependence - Type 2 diabetes mellitus without complications - Unspecified atrial flutter 12/23/2021 07:23 [facility] [place] TYPE: Emergency COMPLAINT: - CHEST PRESSURE,SHOB DIAGNOSES: - Personal history of nicotine dependence - Bee allergy status - Allergy status to other antibiotic agents - Type 2 diabetes mellitus without complications - Other chest pain - Other intermediate (current) drug therapy - Acute bronchospasm 11/15/2021 07:59 [facility] [place] TYPE: Emergency COMPLAINT: - RAPID HEART BEAT DIAGNOSES: - Bee allergy status - Allergy status to other antibiotic agents - Type 2 diabetes mellitus without complications - Personal history of nicotine dependence - Other intermediate (current) drug therapy - Palpitations INPATIENT VISIT TRACKING (12 MO.) No inpatient visits to display in this time frame [id number]
[2022-01-17] MEDS ORDERED: SERTRALINE HCL100 MG PO (03:16)
[2022-01-18] MEDS ORDERED: HYDROXYZINE HCL25 MG PO (18:43)
== END 2022-01-17 03:51 | disposition home or self-care (01) ==
LOC: ED 03:02
DX: F41.9 Anxiety disorder, unspecified (principal); E11.9 Type 2 diabetes mellitus without complications; Z87.891 Personal history of nicotine dependence; Z91.030 Bee allergy status; Z88.1 Allergy status to other antibiotic agents; Z79.899 Other long term (current) drug therapy
CPT/HCPCS: 99283

== ENCOUNTER 2022-01-18 13:10 | Emergency (ER) | payer MEDICARE, OTHER ==
[~2022-01-18] VITALS: Ht 185.4 cm; Wt 96.2 kg
[~2022-01-18 13:10] MED LIST changes: +SERTRALINE HCL100 MG PO
--- OUTSIDE RECORDS SUMMARY | 2022-01-18 13:12 | XMS ---
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 Madhavi VISIT COUNT (12 MO.) 6 [facility] TOTAL 6 NOTE: Visits indicate total known visits. ED/C VISIT TRACKING (12 MO.) 01/18/2022 13:11 [facility] [place] TYPE: Emergency COMPLAINT: - CONFUSION,UNABLE TO URINATE 01/17/2022 03:03 [facility] [place] TYPE: Emergency COMPLAINT: - FEELS NOT HIMSELF 01/15/2022 09:15 [facility] [place] TYPE: Emergency COMPLAINT: - POSS PANIC ATTACK 01/03/2022 06:43 [facility] [place] TYPE: Emergency COMPLAINT: - PANIC ATTACK DIAGNOSES: - Personal history of nicotine dependence - Type 2 diabetes mellitus without complications - Unspecified atrial flutter - Palpitations - Bee allergy status - Other assisted (current) drug therapy - Allergy status to other antibiotic agents - Anxiety disorder, unspecified 12/23/2021 07:23 [facility] [place] TYPE: Emergency COMPLAINT: - CHEST PRESSURE,SHOB DIAGNOSES: - Other chest pain - 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 - Acute bronchospasm - Personal history of nicotine dependence - Bee allergy status - Allergy status to other antibiotic agents - Type 2 diabetes mellitus without complications 11/15/2021 07:59 [facility] [place] TYPE: Emergency COMPLAINT: - RAPID HEART BEAT DIAGNOSES: - Personal history of nicotine dependence - Other assisted (current) drug therapy - Palpitations - Bee allergy status - Allergy status to other antibiotic agents - Type 2 diabetes mellitus without complications INPATIENT VISIT TRACKING (12 MO.) No inpatient visits to display in this time frame [id number]
[2022-01-18] MEDS ORDERED: HYDROXYZINE HCL25 MG PO (18:43)
--- NOTE | 2022-01-18 18:46 | EKG ---
[facility] [address] [facility] [place] [address] Signed Sinus bradycardia Otherwise normal ECG When compared with ECG of 15-JAN-2022 09:35, Sinus rhythm has replaced Electronic atrial pacemaker Confirmed by DAISY CARLIN MD ([id number]) on 01/18/2022 6:45:50 PM Electronically Signed By: DAISY CARLIN MD 01/18/22 1846 PATIENT NAME: VINCENZO COOK JR Electrocardiogram DATE OF : 46 PHYSICIAN: DAISY CARLIN MD REPORT #: [id number] REPORT IS CONFIDENTIAL AND NOT TO BE RELEASED WITHOUT AUTHORIZATION
== END 2022-01-18 18:59 | disposition home or self-care (01) ==
LOC: ED 13:10
DX: F41.8 Other specified anxiety disorders (principal); E11.9 Type 2 diabetes mellitus without complications; I48.92 Unspecified atrial flutter; Z87.891 Personal history of nicotine dependence; Z91.030 Bee allergy status; Z88.1 Allergy status to other antibiotic agents; Z79.899 Other long term (current) drug therapy
CPT/HCPCS: 36415; 80053; 81001; 84443; 85025; 93005; 93010; 99285-25

== ENCOUNTER 2024-05-12 09:25 | Day surgery (SDC) | payer MEDICARE, OTHER ==
[~2024-05-12] VITALS: Ht 185.4 cm; Wt 88.1 kg
[~2024-05-12 09:25] MED LIST changes: +HYDROXYZINE HCL25 MG PO; +IBLOOD GLUCOSE TEST STRIP 1 EA TEST VI PRN; +LACTATED RINGER'S 1,000 ML IV SCH; +LIDOCAINE HCL 1% 5 ML SDV INJ ONE; +MIDAZOLAM HCL 5 MG/5 ML VIAL IV PRN; +fentaNYL citrate 100 MCG/2 ML VIAL IV PRN
[2024-05-12 09:54] VITALS: BP 151/70
[2024-05-12] MEDS ORDERED: CONSTULOSE10 GM/15 M PO (10:03)
[2024-05-12] MEDS ORDERED: HYDROCHLOROTH12.5 M1 PO (10:04)
[2024-05-12] MEDS ORDERED: XARELTO20 MG PO (10:04)
[2024-05-12] MEDS ORDERED: LIPITOR10 MG PO (10:05)
[2024-05-12] MEDS ORDERED: ASPIRIN81 MG PO (10:05)
[2024-05-12] MEDS ORDERED: OZEMPIC2 MG/0.75 (10:25)
[2024-05-12] MEDS ORDERED: MIDAZOLAM HCL 5 MG/5 ML VIAL ONE (10:26)
[2024-05-12] MEDS ORDERED: fentaNYL citrate 100 MCG/2 ML VIAL ONE (10:26)
--- NOTE | 2024-05-12 11:41 | NUR ---
05/12/24 1141 Cecilia Monte PT TO PACU SLEEPY, RESPONDS TO VERBAL STIMULI. DENIES PAIN AND NAUSEA.
[2024-05-12 11:56] LABS: BASOPHILS 0.4 % (0-2); HEMATOCRIT 33.6 % (35.0-50.0); HEMOGLOBIN 11.7 g/dL (12.0-18.0); LYMPHOCYTES 19.2 % (24-44); MCH 30.6 (27-36); MCHC 34.8 g/dl (30-36); MONOCYTES 10.9 % (0-12); NEUTROPHILS 66.5 % (39-80); PLATELET COUNT 154 K/uL (140-440); RBC 3.82 M/ul (4.3-5.7); RDW 14.5 (10.5-15.0)
[2024-05-12 12:01] VITALS: BP 133/69
--- NOTE | 2024-05-13 11:16 | OR ---
[facility] [address] [place], [place] [address] Signed DATE OF OPERATION: 05/12/2024 SURGEON: Valdemar Bhardwaj MD PREOPERATIVE DIAGNOSES: 1. Anemia. 2. Ongoing use of thrombin inhibitor therapy for history of atrial fibrillation (now sinus rhythm). POSTOPERATIVE DIAGNOSES: 1. Normal upper endoscopy. 2. Minimal diverticulitis of sigmoid and diminutive polyp of transverse colon. PROCEDURES: 1. Esophagogastroduodenoscopy with biopsy. 2. Total colonoscopy with cold morcellation polypectomy x1. ANESTHESIA: Intravenous sedation, fentanyl 150 mcg, Versed 8 mg total. INDICATIONS FOR THE PROCEDURE: This 73-year-old white man is patient of Odin AYALA. He is known to me from the distant past for several interventions including a diagnosis of lymphoma nearly 30 years ago. He is chronically anticoagulated with Xarelto on the basis of history of atrial fibrillation, though he has undergone ablative therapy and currently has normal sinus rhythm. He has had hematuria for reasons uncertain, possibly related to the nephrolithiasis in the recent past. He has no blood per rectum or hematemesis, but has been noted to have anemia and on that basis was referred for upper endoscopy and colonoscopy. He understands the risk of the procedures, which include but are not limited to bleeding, infection, and perforation and wished to proceed. FINDINGS: Upper endoscopy showed a normal esophagus, stomach and duodenum. Biopsies were obtained nevertheless. CLOtest was negative at 30 minutes. There was no clinical evidence of celiac disease. On colonoscopy, the prep was quite good. There were scattered small diverticula of the sigmoid and left colon. A very small diminutive polyp was noted at the right transverse colon, which was excised. The remaining right colon and cecum so far as visualized was normal also. Full intubation of the cecum was not undertaken that was attempted. Electronically Signed By: VALDEMAR BHARDWAJ MD 05/13/24 1116 PATIENT NAME: VINCENZO COOK JR OPERATIVE REPORT DATE OF : 46 REPORT #: [id number] PHYSICIAN: VALDEMAR BHARDWAJ MD PCP: ODIN SANCHEZ PAC REPORT IS CONFIDENTIAL AND NOT TO BE RELEASED WITHOUT AUTHORIZATION [facility] [address] [place], [place] [address] Signed Grasping of the mucosa with the biopsy forceps did allow for visualization of the cecum, however, and I do not believe it is likely that there is a lesion that has not been identified there. DESCRIPTION OF PROCEDURE: The patient was brought to the endoscopy suite and given topical lidocaine hypopharyngeal anesthesia and placed in the lateral decubitus position. He was given intravenous sedation to the point of slurred speech and nystagmus with full cardiopulmonary monitoring. Normal sinus rhythm was noted. An Olympus video upper endoscope was passed into the hypopharynx. The vocal cords appeared normal. The esophagus throughout its length was normal. Stomach was intubated. Rugal folds were normal as was antral motility. Pylorus was normal. Scope was passed through into the duodenum, which was normal. Biopsies were then taken of the duodenum to assess for celiac disease. The scope was withdrawn. Biopsies taken of the antrum for both SALOMÓN and pathologic testing. Retroflexed view was undertaken showing a reasonable flap valve. The scope was withdrawn and biopsies then taken of distal esophagus. Further withdrawal showed no sign of abnormality of the esophagus otherwise. Plans were made for colonoscopy. Digital rectal examination was normal. Olympus video colonoscope was passed into the rectum and manipulated throughout the colon noting scattered diverticula of the sigmoid and left colon. The colon was rather redundant. A small polyp was noted in the transverse colon, which was excised with cold morcellation technique. The scope was advanced further than this ultimately beyond the hepatic flexure into the right colon. Various maneuvers were used including abdominal wall stabilization, position change and so forth, but a full and complete intubation of the cecum proper was not forthcoming. Biopsy forceps were used to grasp the mucosa of the cecum and using a "pull-up" maneuver, the scope was advanced a bit more, which allowed for visualization of the cecum, but not full intubation of it. It appeared normal. After further attempts at full intubation, the scope was then withdrawn and examination carefully undertaken showed no sign of other abnormality. Retroflexed view of the rectum was normal. The scope was removed. The patient was taken to the recovery room in good condition. CONCLUDING DIAGNOSIS: Normal upper endoscopy; diminutive polyp of right transverse colon and minimal diverticula. It is unlikely that his source of anemia is from the upper gastrointestinal tract or the colon, though the small bowel has not been evaluated. The history of his hematuria, which is now resolved may be a source of anemia in his case given his chronic anticoagulation with Xarelto. PLAN: He will return to the ongoing care of JAMIE Moreno. We will check a CBC today in the recovery room with a carbon copy to JAMIE Moreno. Electronically Signed By: VALDEMAR BHARDWAJ MD 05/13/24 1116 PATIENT NAME: VINCENZO COOK JR OPERATIVE REPORT DATE OF : 46 REPORT #: [id number] PHYSICIAN: VALDEMAR BHARDWAJ MD PCP: ODIN SANCHEZ PAC REPORT IS CONFIDENTIAL AND NOT TO BE RELEASED WITHOUT AUTHORIZATION [facility] [address] [place], [place] [address] Signed MD ROBYN Alvarado/YFNL /[id number] cc: JAMIE Moreno Copies: ~ Electronically Signed By: VALDEMAR BHARDWAJ MD 05/13/24 1116 PATIENT NAME: VINCENZO COOK OPERATIVE REPORT DATE OF : 46 REPORT #: [id number] PHYSICIAN: VALDEMAR BHARDWAJ MD PCP: ODIN SANCHEZ PAC REPORT IS CONFIDENTIAL AND NOT TO BE RELEASED WITHOUT AUTHORIZATION
--- NOTE | 2024-05-18 17:07 | PATH ---
[facility] [address] [facility] [place] [address] Signed THIS IS AN ADDENDUM REPORT SPECIMEN(S): A DUODENAL BIOPSY SPECIMEN(S): B ANTRUM BIOPSY SPECIMEN(S): C LOWER ESOPHAGEAL BIOPSY SPECIMEN(S): D TRANSVERSE COLON BIOPSY SPECIMEN SOURCE: A. DUODENAL BIOPSY B. ANTRUM BIOPSY C. LOWER ESOPHAGEAL BIOPSY D. TRANSVERSE COLON BIOPSY CLINICAL HISTORY: History of anemia/polyps. Post: Transverse/diverticulosis. Rule out celiac disease FINAL PATHOLOGIC DIAGNOSIS: A. Duodenal, biopsy: - Benign duodenal mucosa, negative for specific diagnostic abnormality. B. Antrum, biopsy: - Benign gastric mucosa with focal slight chronic inflammation. - Negative for evidence of Helicobacter organisms on routine HE stained sections. C. Lower esophageal biopsy: - Benign esophageal epithelium, negative for increased epithelial eosinophils. - Negative for glandular mucosa. D. Transverse colon, biopsy: - Colonic mucosa with focal adenomatous change (one fragment). JVR:cml MICROSCOPIC EXAMINATION: Histologic sections of all submitted blocks are examined by light microscopy. These findings, together with the gross examination, support the pathologic diagnosis. GROSS DESCRIPTION: A. The specimen, labeled and designated "Adrián Olmedo, duodenal biopsy," is received in formalin and consists of two murdock soft tissue fragments, ranging from 0.3-0.4 cm. Entirely submitted in (A1). B. The specimen, labeled and designated "Adrián Olmedo, antrum biopsy," is received PATIENT NAME: VINCENZO OLMEDO JR PATHOLOGY DATE OF : 46 REPORT #: [id number] PHYSICIAN: ALCIRA MCCOY PCP: ODIN SANCHEZ PAC REPORT IS CONFIDENTIAL AND NOT TO BE RELEASED WITHOUT AUTHORIZATION [facility] [address] [facility] [place] [address] Signed in formalin and consists of one murdock soft tissue fragment, 0.4 cm. Entirely submitted in (B1). C. The specimen, labeled and designated "Honorio, W, lower esophageal biopsy," is received in formalin and consists of one murdock soft tissue fragment, 0.3 cm. Entirely submitted in (C1). D. The specimen, labeled and designated "Honorio, W, transverse colon biopsy," is received in formalin and consists of one murdock soft tissue fragment, 0.4 cm. Entirely submitted in (D1). AB (under the direct supervision of a pathologist) The Gross Description was prepared using a voice recognition system. The report was reviewed for accuracy; however, sound-alike word errors, addition and/or deletions may occur. If there is any question about this report, please contact Client Services. PERFORMING LABORATORY: Technical component was performed by [facility] [facility], [address] [place] [id number] (CLIA# [id number]). Professional interpretation was performed by [facility], [address] [place] [id number] (CLIA#: [id number]). ADDITIONAL NOTES: Immunohistochemical and/or in situ hybridization studies were performed on this case with the appropriate positive controls that react as expected. This test was developed and its performance characteristics determined by [facility]. It has not been cleared or approved by the U.S. Food and Drug Administration. The FDA has determined that such clearance or approval is not necessary. This test is used for clinical purposes. It should not be regarded as investigational or for research. [facility] is certified under the Clinical Laboratory Improvement Amendments of 1988 (CLIA) as qualified to perform high complexity clinical laboratory testing. This assay has not been validated for specimens that have been decalcified. Professional interpretation was performed by [facility], [address] [place] [address] Ave[address] [place] [address] (CLIA#: [id number]). REASON FOR ADDENDUM: To report the results of Helicobacter pylori immunostain on the antral biopsy. ADDENDUM COMMENT: B. Helicobacter pylori immunostain is performed with appropriate controls on PATIENT NAME: KINGLOYA MAYITO PATHOLOGY DATE OF : 46 REPORT #: [id number] PHYSICIAN: ALCIRA MCCOY PCP: ODIN SANCHEZ PAC REPORT IS CONFIDENTIAL AND NOT TO BE RELEASED WITHOUT AUTHORIZATION [address] [address] Signed block B1 and is negative for Helicobacter organisms. The original diagnostic features remain unchanged. FLY:rere Diagnostician: Yahir Vasquez MD Pathologist Electronically Signed 05/18/2024 Copies: ~ PATIENT NAME: VINCENZO OLMEDO JR PATHOLOGY DATE OF : 46 REPORT #: [id number] PHYSICIAN: ALCIRA PATHOLOGY PCP: ODIN SANCHEZ PAC REPORT IS CONFIDENTIAL AND NOT TO BE RELEASED WITHOUT AUTHORIZATION
== END 2024-05-12 12:15 | disposition home or self-care (01) ==
LOC: DS 09:25
PROVIDERS: ATTEND Surgery
PROC: 0DB58ZX Excision of Esophagus, Via Natural or Artificial Opening Endoscopic, Diagnostic (ICD-10-PCS; 2024-05-12)
PROC: 0DBH8ZZ Excision of Cecum, Via Natural or Artificial Opening Endoscopic (ICD-10-PCS; 2024-05-12)
PROC: 0DBL8ZZ Excision of Transverse Colon, Via Natural or Artificial Opening Endoscopic (ICD-10-PCS; 2024-05-12)
PROC: 0DB98ZX Excision of Duodenum, Via Natural or Artificial Opening Endoscopic, Diagnostic (ICD-10-PCS; principal; 2024-05-12 11:00)
PROC: 0DB68ZX Excision of Stomach, Via Natural or Artificial Opening Endoscopic, Diagnostic (ICD-10-PCS; 2024-05-12 11:00)
DX: D50.9 Iron deficiency anemia, unspecified (principal); D12.3 Benign neoplasm of transverse colon; K57.30 Diverticulosis of large intestine without perforation or abscess without bleeding; K29.50 Unspecified chronic gastritis without bleeding; I10 Essential (primary) hypertension; E11.9 Type 2 diabetes mellitus without complications; N40.0 Benign prostatic hyperplasia without lower urinary tract symptoms; G47.30 Sleep apnea, unspecified; I48.91 Unspecified atrial fibrillation; Z86.0100 Personal history of colon polyps, unspecified; Z79.890 Hormone replacement therapy; Z79.01 Long term (current) use of anticoagulants; Z79.84 Long term (current) use of oral hypoglycemic drugs; Z79.899 Other long term (current) drug therapy; Z88.1 Allergy status to other antibiotic agents; Z91.030 Bee allergy status
CPT/HCPCS: 36415; 85025; 88305; 88342; 99153; G0500; J2250; J3010; J7121